=== PATIENT | female | born 1990 | race Caucasian/White ===

== ENCOUNTER 2025-05-30 02:48 | Emergency (ER) | payer SELFPAY ==
[~2025-05-30] VITALS: Ht 162.6 cm; Wt 100.0 kg
[2025-05-30 02:56] VITALS: O2SAT 99
[2025-05-30] MEDS: LIDOCAINE 5% PATCH TOP SCH (04:22)
[2025-05-30] MEDS: KETOROLAC 15MG/ML VIAL IM ONE (04:22)
[2025-05-30] MEDS ORDERED: NAPR-1176 MT (04:48)
[2025-05-30] MEDS ORDERED: LIDO-53 TP (04:48)
[2025-05-30 05:00] VITALS: BP 119/71; PULSE 73; RESP 18; TEMP 36.6; O2SAT 99
== END 2025-05-30 05:00 | disposition home or self-care (01) ==
LOC: ER 02:48
DX: M54.50 Low back pain, unspecified (principal)
CPT/HCPCS: 99283; 96372; J1885